=== PATIENT | female | born 1980 | race Two or more races ===

== ENCOUNTER 2020-10-04 22:28 | Emergency (ER) | payer OTHER ==
[~2020-10-04] VITALS: Ht 160 cm; Wt 104.3 kg
[2020-10-05] MEDS ORDERED: MEDROXYPROGESTE10 MG PO (03:01)
== END 2020-10-05 03:23 | disposition home or self-care (01) ==
LOC: ER 22:28
DX: N93.8 Other specified abnormal uterine and vaginal bleeding (principal)